=== PATIENT | male | born 1950 | race Caucasian/White ===

== ENCOUNTER 2017-12-03 14:14 | Emergency (ER) | payer OTHER, MEDICARE ==
--- NOTE | 2017-12-03 14:35 | CPEKG ---
Test Reason : OPEN Blood Pressure : / mmHG Vent. Rate : 066 BPM Atrial Rate : 066 BPM P-R Int : 191 ms QRS Dur : 086 ms QT Int : 393 ms P-R-T Axes : 055 078 060 degrees QTc Int : 412 ms Sinus rhythm Abnormal R-wave progression, early transition Confirmed by Rolando Landry ([id number]) on 12/03/2017 2:34:49 PM Referred By: Confirmed By:Rolando Landry
--- NOTE | 2017-12-03 14:39 | EDPHY ---
H & P Stated Complaint: intermittent hearrt palpitations last 3 days Time Seen by Provider: 12/03/17 14:35 HPI/ROS: CHIEF COMPLAINT: Palpitations HISTORY OF PRESENT ILLNESS: The patient presents to the ED with very episodic palpitations over the past 3 days. He describes a sensation of a skipped heartbeat. It occurs approximately 9-12 times a day. It primarily occurs at rest in the evening. The patient is quite active. He denies any exertional chest pain or shortness of breath. He has been relatively asymptomatic today. The patient does have a history of hyperlipidemia but otherwise is healthy. Patient denies fever, cough or congestion. He denies significant abdominal pain or symptoms of gastroesophageal reflux disease. REVIEW OF SYSTEMS: A comprehensive 10 point review of systems is otherwise negative aside from elements mentioned in the history of present illness. Source: Patient - Personal History Current Tetanus Diphtheria and Acellular Pertussis (TDAP): Yes - Medical/Surgical History Hx Asthma: No Hx Chronic Respiratory Disease: No Hx Diabetes: No Hx Cardiac Disease: Yes Hx Renal Disease: No Hx Cirrhosis: No Hx Alcoholism: No Hx HIV/AIDS: No Hx Splenectomy or Spleen Trauma: No Other PMH: ? atrial fibrillation? - Social History Smoking Status: Never smoked - Physical Exam Exam: General Appearance: Alert, no distress Eyes: Pupils equal and round no pallor or injection ENT, Mouth: Mucous membranes moist Respiratory: There are no retractions, lungs are clear to auscultation Cardiovascular: Regular rate and rhythm Gastrointestinal: Abdomen is soft and nontender, no masses, bowel sounds normal Neurological: A&O, normal motor function, normal sensory exam, normal cranial nerves Skin: Warm and dry, no rashes Musculoskeletal: Neck is supple nontender Extremities: symmetrical, full range of motion Constitutional: Initial Vital Signs Temperature (C) 37 C 12/03/17 14:18 Heart Rate 71 12/03/17 14:18 Respiratory Rate 18 12/03/17 14:18 Blood Pressure 126/74 H 12/03/17 14:18 O2 Sat (%) 94 12/03/17 14:18 O2 Delivery Mode Room Air Allergies/Adverse Reactions: No Known Allergies Allergy (Unverified 12/03/17 14:18) Home Medications: Medication Instructions Recorded SIMVASTATIN 12/03/17 Medical Decision Making - Diagnostics EKG Interpretation: EKG: Complete interpretation has been separately recorded in the [facility] archive. Summary impression: Sinus rhythm, rate 66 ED Course/Re-evaluation: The patient presents the ED with isolated sporadic palpitations over the past several days. His EKG demonstrates no evidence of arrhythmia. The patient has no symptoms to suggest cardiac ischemia or pulmonary embolism. While in the ED the patient was monitored. During that time he did have a recurrent episode which correlated with a single unifocal PVC. The patient's metabolic panel and troponin are normal. I have informed him that this is a benign arrhythmia. Should he have increasing frequency of PVCs it would be reasonable to have him have a Holter monitor and be seen by Cardiology. Plan will be for discharge home with follow- up at Cardiology for consideration of a Holter monitor. Patient is discharged home with instructions to return to the ED for any chest pain, shortness of breath for markedly worsening symptoms. Differential Diagnosis: Differential diagnosis considered includes SVT, atrial fibrillation, PVC, PAC - Data Points Laboratory Results: 12/03/17 12/03/17 14:47 14:43 POC Hgb 14.6 gm/dL gm/dL (13.7-17.5) POC Hct 43 % % (40-51) POC Sodium 143 mEq/L mEq/L (135-145) POC Potassium 4.0 mEq/L mEq/L (3.3-5.0) POC Chloride 105 mEq/L mEq/L (97-110) POC BUN 12 mg/dL mg/dL (7-23) POC Creatinine 0.9 mg/dL mg/dL (0.7-1.3) POC Glucose 143 mg/dL H mg/dL (70-100) POC Troponin I 0.01 ng/mL ng/mL (0.00-0.08) Point of Care Test Results: Chemistry 12/03/17 12/03/17 14:47 14:43 POC Sodium 143 mEq/L mEq/L (135-145) POC Potassium 4.0 mEq/L mEq/L (3.3-5.0) POC Chloride 105 mEq/L mEq/L (97-110) POC BUN 12 mg/dL mg/dL (7-23) POC Creatinine 0.9 mg/dL mg/dL (0.7-1.3) POC Glucose 143 mg/dL H mg/dL (70-100) POC Troponin I 0.01 ng/mL ng/mL (0.00-0.08) ISTAT H&H 12/03/17 14:47 POC Hgb 14.6 gm/dL gm/dL (13.7-17.5) POC Hct 43 % % (40-51) Departure - Departure Disposition: Home, Routine, Self-Care Clinical Impression: Palpitations, PVC (premature ventricular contraction) Condition: Good Instructions: Heart Palpitations (DC), Premature Ventricular Contractions (ED) Additional Instructions: 1. Please return to the ED for any chest pain, shortness of breath, markedly worsening symptoms or other concerns. 2. The workup in the emergency department today demonstrates only a benign arrhythmia known as a PVC. 3. I do recommend following up with Cardiology for consideration of a Holter monitor if you continue to experience more frequent episode of palpitations. You have been given the contact number of our on-call compensation agent Dr. Varsha Murillo. 4. It would be reasonable to schedule a follow-up appointment with your primary care provider as well. Referrals: Varsha Murillo MD [Medical Doctor] - As per Instructions
[2017-12-03 15:15] VITALS: BP 129/75
== END 2017-12-03 15:39 | disposition home or self-care (01) ==
DX: R00.2 Palpitations (principal); I49.3 Ventricular premature depolarization; E78.5 Hyperlipidemia, unspecified
CPT/HCPCS: 82435-PO; 82565-PO; 82947-PO; 84132-PO; 84295-PO; 84484-PO; 84520-PO; 85014-PO